=== PATIENT | male | born 1985 | race Caucasian/White ===

== ENCOUNTER 2018-10-15 19:15 | Emergency (ER) | payer BC, OTHER ==
[2018-10-15 19:31] VITALS: RESP 16; TEMP 98.1
--- NOTE | 2018-10-15 20:30 | ED ---
General Adult HPI - General Source: patient, RN notes reviewed Mode of arrival: ambulatory Limitations: no limitations <Amandeep Sullivan - Last Filed: 10/15/18 20:30> <Sebastian Chen - Last Filed: 10/15/18 22:21> - General Chief complaint: Psychiatric Symptoms Stated complaint: suicidal Time Seen by Provider: 10/15/18 19:30 - History of Present Illness Initial comments: This is a 32-year-old male who presents emergency department stating that he came to work today feeling very depressed and thinking about committing suicide. Patient states when she started to shift he broke down and started crying and couldn't get these thoughts of committing suicide out of his head. Patient decided to get some help her patient states lately he has been thinking more more about it but it became overwhelming today. Patient states he has been depressed for a while stopped his Lexapro about 2 months ago because he wasn't sure it was helping. Patient states during the time he was on Lexapro he was still having some suicidal thoughts but they have definitely gotten worse since she has stopped it. Patient states he is no previous attempt at suicide. He did not have a specific plan today. Patient denies any physical complaints today. Patient denies chest pain difficulty breathing or shortness of breath per patient denies abdominal pain patient denies nausea vomiting diarrhea. Patient denies any recent fever chills or cough. (Amandeep Sullivan) - Related Data Home Medications Medication Instructions Recorded Confirmed Acetaminophen Tab [Tylenol] 1,000 mg PO BID 10/15/18 10/15/18 Ibuprofen [Motrin Ib] 400 mg PO BID 10/15/18 10/15/18 diphenhydrAMINE HCL [Benadryl] 25 mg PO HS 10/15/18 10/15/18 Allergies Allergy/AdvReac Type Severity Reaction Status Date / Time No Known Allergies Allergy Verified 10/15/18 20:23 Review of Systems ROS Other: All systems not noted in ROS Statement are negative. <Amandeep Sullivan - Last Filed: 10/15/18 20:30> ROS Other: All systems not noted in ROS Statement are negative. <Sebastian Chen - Last Filed: 10/15/18 22:21> ROS Statement: Those systems with pertinent positive or pertinent negative responses have been documented in the HPI. Past Medical History Past Medical History: No Reported History History of Any Multi-Drug Resistant Organisms: None Reported Past Surgical History: No Surgical Hx Reported Past Psychological History: Anxiety, Depression Smoking Status: Never smoker Past Alcohol Use History: None Reported Past Drug Use History: None Reported <Amandeep Sullivan - Last Filed: 10/15/18 20:30> General Exam Limitations: no limitations <Amandeep Sullivan - Last Filed: 10/15/18 20:30> <Sebastian Chen - Last Filed: 10/15/18 22:21> - General Exam Comments Initial Comments: GENERAL: Patient is well-developed and well-nourished. Patient is nontoxic and well- hydrated and is in mild distress. ENT: Neck is soft and supple. No significant lymphadenopathy is noted. Oropharynx is clear. Moist mucous membranes. Neck has full range of motion without eliciting any pain. EYES: The sclera were anicteric and conjunctiva were pink and moist. Extraocular movements were intact and pupils were equal round and reactive to light. Eyelids were unremarkable. PULMONARY: Unlabored respirations. Good breath sounds bilaterally. No audible rales rhonchi or wheezing was noted. CARDIOVASCULAR: There is a regular rate and rhythm without any murmurs gallops or rubs. ABDOMEN: Soft and nontender with normal bowel sounds. No palpable organomegaly was noted. There is no palpable pulsatile mass. SKIN: Skin is clear with no lesions or rashes and otherwise unremarkable. NEUROLOGIC: Patient is alert and oriented x3. Cranial nerves II through XII are grossly intact. Motor and sensory are also intact. Normal speech, volume and content. Symmetrical smile. MUSCULOSKELETAL: Normal extremities with adequate strength and full range of motion. LYMPHATICS: No significant lymphadenopathy is noted PSYCHIATRIC: Patient is tearful through the interview and he is very the patient has very flat affect and he admits that he is suicidal. (Amandeep Sullivan) Vital Signs 10/15/18 19:27 Temperature 98.1 F Pulse Rate 101 H Respiratory 16 Rate Blood Pressure 153/94 O2 Sat by Pulse 99 Oximetry Medical Decision Making <Amandeep Sullivan - Last Filed: 10/15/18 20:30> <Sebastian Chen - Last Filed: 10/15/18 22:21> - Medical Decision Making Dr. Chen be taking over the care of this patient at 9 PM (Amandeep Sullivan) This is a 32-year-old male who presents emergency department for depression. Patient was evaluated by EPS nurse and felt that he does not require inpatient treatment. The patient and his are able to contract for safety. They have a safety plan. The is going to be staying with the patient for the next 7 days and has work off. The patient feels safe going home. Outpatient resources were provided. Patient was instructed to return if he had worsening Leonard or depression. All questions were answered. (Sebastian Chen) Disposition <Amandeep Sullivan - Last Filed: 10/15/18 20:30> Is patient prescribed a controlled substance at d/c from ED?: No <Sebastian Chen - Last Filed: 10/15/18 22:21> Clinical Impression: Depression Disposition: HOME SELF-CARE Condition: Stable Instructions: Depression (ED) Referrals: Ganga Hawkins MD [Primary Care Provider] - 1-2 days
[2018-10-15 22:26] LABS: Amphetamine Screen,Urine Not Detected (NotDetected); Barbiturate Screen,Urine Not Detected (NotDetected); Benzodiazepines Screen,Urine Not Detected (NotDetected); Cocaine Screen,Urine Not Detected (NotDetected); Methadone Screen, Urine Not Detected (NotDetected); Opiate Screen,Urine Not Detected (NotDetected); Oxycodone Screen, Urine Not Detected (NotDetected); Phencyclidine Screen,Urine Not Detected (NotDetected); Tricyclic Antidepressant,Urine Not Detected (NotDetected); Urn Cannabinoid Scrn Not Detected (NotDetected)
[2018-10-15 22:31] VITALS: BP 139/89; PULSE 76
== END 2018-10-15 22:27 | disposition home or self-care (01) ==
LOC: EC 19:15
DX: F32.9 Major depressive disorder, single episode, unspecified (principal); R45.851 Suicidal ideations; R45.83 Excessive crying of child, adolescent or adult; Z79.1 Long term (current) use of non-steroidal anti-inflammatories (NSAID); Z79.891 Long term (current) use of opiate analgesic; Z79.899 Other long term (current) drug therapy
CPT/HCPCS: 80306; 99285

== ENCOUNTER → 2019-01-07 | Outpatient (CLI) | payer MEDICAID ==
[2019-01-07 17:46] LABS: HCT 41.5 % (39.0-53.0); HGB 14.5 gm/dL (13.0-17.5); MCH 29.9 pg (25.0-35.0); MCHC 34.9 g/dL (31.0-37.0); MCV 85.5 fL (80.0-100.0); Mean Platelet Volume 8.3; Platelet Count 159 k/uL (150-450); RBC 4.85 m/uL (4.30-5.90); RDW 13.7 % (11.5-15.5); WBC 6.3 k/uL (3.8-10.6)
== END | disposition home or self-care (01) ==
LOC: LABWHC1 17:05
PROVIDERS: ATTEND Family Medicine
DX: F41.8 Other specified anxiety disorders (principal); F43.0 Acute stress reaction; F33.2 Major depressive disorder, recurrent severe without psychotic features
CPT/HCPCS: 36415; 85027; 86663

== ENCOUNTER → 2024-08-05 | Outpatient (CLI) | payer BC ==
--- NOTE | 2024-08-05 08:27 | FL ---
EXAMINATION TYPE: FL barium swallow DATE OF EXAM: 08/05/2024 8:19 AM COMPARISON: None CLINICAL INDICATION:Male, 38 years old with history of DYSPHAGIA, PHARYNGEAL PHASE; TECHNIQUE: The procedure was explained and patient history elicited. All patient questions were ans wered prior to start of procedure. Multiple spot fluoroscopic images of the esophagus were obtained a fter the oral ingestion of effervescent crystals and liquid barium as the contrast agent. Fluoroscopic time:20 sec Fluoroscopic images: 0 Radiographs taken: 105 DAP: Not reported [id number] FINDINGS: The esophagus demonstrates normal primary and secondary peristalsis. Small outpouching seen in the u pper esophagus on single image suggested image 7 of 105. The esophageal mucosa is smooth without evid ence of focal stricture, ulceration, or abnormal outpouching. Small gastroesophageal reflux disease w as identified when the patient was lying oblique prone. IMPRESSION: 1. Free flow of contrast through the esophagus. 2. Cricopharyngeal bar suggested. Consider speech evaluation. 3. Gastroesophageal reflux when the patient was lying prone [facility], , 08/05/2024 8:25 AM
== END | disposition home or self-care (01) ==
LOC: RADFLMAIN 07:51
PROVIDERS: ATTEND Internal Medicine Gastroenterology
CPT/HCPCS: 74220